=== PATIENT | female | born 1970 | race Caucasian/White ===

== ENCOUNTER 2017-07-04 17:22 | Emergency (ER) | payer OTHER ==
[~2017-07-04] VITALS: Ht 152.4 cm; Wt 55.8 kg
[~2017-07-04 17:22] MED LIST: ACYC400 PO; ALBU90OI INH; AMIT10 PO; AMOX500 PO; AZIT250 PO; BENZ100A PO; CEPH500 PO; CIPR100 PO; CIPR500 PO; CLIN300 PO; CLOT10 SUSW; CODBUTASA PO; CYCL10 PO; DICY20 PO; DOCU100 PO; HYDACE5; HYDACE5 PO; HYDHOMSY PO; IBUP800 PO; MAGCIT300 PO; MULVITA; MUPI2TO TOP; NAPR220 PO; NITR100CA PO; NYST237S MT; ONDA4ODT MM; OTC COLD MEDS; OXYACE5T PO; PARO10 PO; PENVK500 PO; PHENA100 PO; PHENA200 PO; POLY17UD PO; PRED20 PO; Pyridium100 MG PO; ROBITUSSIN COU237 ML PO; RXCLIN PO; RXHYDACE PO; SULTRIDS PO; TRAM50 PO; [UNRECOGNIZED DRUG - OTHER]
[2017-07-04 18:13] LABS: BASOPHILS ABSOLUTE AUTO 0.05 K/mm3 (0.00-0.23); BASOPHILS PERCENT AUTO 1 % (0-2); EOSINOPHILS ABSOLUTE AUTO 0.24 K/mm3 (0.00-0.68); EOSINOPHILS PERCENT AUTO 2 % (0-6); Hemoglobin 13.6 g/dL (11.5-16.0); IMMATURE GRAN ABSOLUTE AUTO 0.06 K/mm3 (0.00-0.10); IMMATURE GRAN PERCENT AUTO 1 % (0-1); LYMPHOCYTES ABSOLUTE AUTO 1.61 K/mm3 (0.84-5.20); LYMPHOCYTES PERCENT AUTO 16 % (21-46); MONOCYTES ABSOLUTE AUTO 0.52 K/mm3 (0.16-1.47); MONOCYTES PERCENT AUTO 5 % (4-13); Mean Corpuscular HGB 30.1 pg (26.0-34.0); Mean Corpuscular HGB Conc 33.2 g/dL (31.5-36.5); Mean Corpuscular Volume 91 fL (80-100); Mean Platelet Volume 9.6 fL (9.1-12.4); NEUTROPHILS ABSOLUTE AUTO 7.86 K/mm3 (1.96-9.15); NEUTROPHILS PERCENT AUTO 76 % (41-73); Platelet Count 357 K/mm3 (150-400); RDW Coefficient Variation 12.2 % (11.7-14.2); RDW Standard Deviation 40.6 fL (35.1-46.3); Red Blood Cell Count 4.52 M/mm3 (3.80-5.20); White Blood Cell Count 10.34 K/mm3 (4.00-11.30)
[2017-07-04 18:39] LABS: Alanine Aminotransfer (ALT/SGP 23 U/L (12-78); Albumin, Blood 4.3 g/dL (3.4-5.0); Albumin/Globulin Ratio 1.4 (0.8-1.8); Alk Phos 67 U/L (50-136); Anion Gap 8 mmol/L (6-16); Aspartate Aminotrans (AST/SGOT 14 U/L (12-37); Bilirubin, Total 0.5 mg/dL (0.1-1.0); Blood Urea Nitrogen 17 mg/dL (8-24); CO2, Blood 25 mmol/L (21-32); Calcium, Blood 9.2 mg/dL (8.5-10.1); Chloride, Blood 109 mmol/L (98-108); Creatinine, Blood 0.81 mg/dL (0.40-1.00); Glomerular Filtration Rate >60 (60-); Glucose, Blood 104 mg/dL (70-99); Potassium, Blood 3.9 mmol/L (3.5-5.5); Sodium, Blood 142 mmol/L (136-145); Total Protein, Blood 7.3 g/dL (6.4-8.2)
[2017-07-04 20:04] LABS: Source, Urine Clean Catch
[2017-07-04 20:06] LABS: Appearance, Urine Turbid (Clear); Bilirubin, Urine Neg (Neg); Blood, Urine 5+ (Neg); Color, Urine Amber (P-Yellow); Glucose Qualitative, Urine Neg (Neg); Ketones, Urine 2+ (Neg); Leukocyte Esterase, Urine 1+ (Neg); Nitrite, Urine Neg (Neg); Protein, Urine 2+ (Neg); Specific Gravity, Urine 1.015 (1.003-1.022); Urobilinogen, Urine NORM (Normal)
[2017-07-04 20:32] LABS: Red Blood Cells, Urine TNTC /hpf (0-2)
[2017-07-04 20:33] LABS: Amorphous Mod (0-Heavy); Bacteria Rare /hpf; Squamous Epithelial Cells Few /hpf (Few)
[2017-07-04] MEDS ORDERED: Zofran Odt4 MG PO (20:38)
[2017-07-04] MEDS ORDERED: HYDR1TAB94 PO (20:38)
[2017-07-04] MEDS ORDERED: Flomax0.4 MG PO (20:38)
== END 2017-07-04 21:46 | disposition home or self-care (01) ==
LOC: ER 17:22
PROVIDERS: Emergency Medicine
DX: N13.2 Hydronephrosis with renal and ureteral calculous obstruction (principal); Z88.2 Allergy status to sulfonamides; Z79.899 Other long term (current) drug therapy; Z79.891 Long term (current) use of opiate analgesic; F17.200 Nicotine dependence, unspecified, uncomplicated
CPT/HCPCS: 36415; 76770; 80053; 81001; 83690; 85025; 96361; 96374; 96375; 99284; J1885; J2270; J2405; J7030

== ENCOUNTER 2017-07-21 22:47 | Emergency (ER) | payer OTHER ==
[~2017-07-21] VITALS: Ht 154.9 cm; Wt 54.4 kg
[~2017-07-21 22:47] MED LIST changes: +Flomax0.4 MG PO; +HYDR1TAB94 PO; +Zofran Odt4 MG PO
[2017-07-21] MEDS ORDERED: AMIT50 PO (23:32)
[2017-07-22 01:55] LABS: Calcium, Ionized (POC) 1.16 mmol/L (1.10-1.46); Chloride (POC) 103 mmol/L (98-108); Glucose (ISTAT POC) 114 mg/dL (70-99); Hemoglobin (POC) 14.6 g/dL (12.0-16.0); Sodium (POC) 141 mmol/L (135-148); Total CO2 (POC) 24 mmol/L (21-32)
[2017-07-22 03:48] LABS: BASOPHILS ABSOLUTE AUTO 0.04 K/mm3 (0.00-0.23); BASOPHILS PERCENT AUTO 0 % (0-2); EOSINOPHILS ABSOLUTE AUTO 0.07 K/mm3 (0.00-0.68); EOSINOPHILS PERCENT AUTO 1 % (0-6); Hematocrit 39.6 % (33.0-51.0); Hemoglobin 13.4 g/dL (11.5-16.0); IMMATURE GRAN ABSOLUTE AUTO 0.05 K/mm3 (0.00-0.10); IMMATURE GRAN PERCENT AUTO 0 % (0-1); LYMPHOCYTES ABSOLUTE AUTO 2.18 K/mm3 (0.84-5.20); LYMPHOCYTES PERCENT AUTO 16 % (21-46); MONOCYTES ABSOLUTE AUTO 0.91 K/mm3 (0.16-1.47); MONOCYTES PERCENT AUTO 7 % (4-13); Mean Corpuscular HGB Conc 33.8 g/dL (31.5-36.5); Mean Corpuscular Volume 89 fL (80-100); Mean Platelet Volume 9.3 fL (9.1-12.4); NEUTROPHILS ABSOLUTE AUTO 10.35 K/mm3 (1.96-9.15); NEUTROPHILS PERCENT AUTO 76 % (41-73); Platelet Count 354 K/mm3 (150-400); RDW Coefficient Variation 12.1 % (11.7-14.2); RDW Standard Deviation 39.8 fL (35.1-46.3); Red Blood Cell Count 4.46 M/mm3 (3.80-5.20)
[2017-07-22 04:03] LABS: Anion Gap 7 mmol/L (6-16); Blood Urea Nitrogen 17 mg/dL (8-24); Bun/Creatinine Ratio 20.6 (12.0-20.0); CO2, Blood 24 mmol/L (21-32); Calcium, Blood 8.7 mg/dL (8.5-10.1); Chloride, Blood 108 mmol/L (98-108); Creatinine, Blood 0.83 mg/dL (0.40-1.00); Glomerular Filtration Rate >60 (60-); Glucose, Blood 101 mg/dL (70-99); Potassium, Blood 4.1 mmol/L (3.5-5.5); Sodium, Blood 139 mmol/L (136-145)
[2017-07-22 04:56] LABS: Source, Urine Clean Catch
[2017-07-22 04:57] LABS: Blood, Urine 5+ (Neg); Glucose Qualitative, Urine Neg (Neg); Ketones, Urine Neg (Neg); Leukocyte Esterase, Urine 2+ (Neg); Nitrite, Urine Neg (Neg); Protein, Urine 2+ (Neg); Specific Gravity, Urine 1.025 (1.003-1.022); Urobilinogen, Urine 1+ (Normal)
[2017-07-22 05:04] LABS: Appearance, Urine Turbid (Clear); Bilirubin, Urine 1+ (Neg); Color, Urine Yellow (P-Yellow)
[2017-07-22 05:41] LABS: Red Blood Cells, Urine TNTC /hpf (0-2); Squamous Epithelial Cells Many /hpf (Few)
[2017-07-22 05:42] LABS: Amorphous Heavy (0-Heavy); Bacteria Mod /hpf; Calcium Oxalate Crystals Many /hpf; Yeast/Fungi Urine Rare /hpf
[2017-07-22] MEDS ORDERED: Cipro500 MG PO (05:51)
[2017-07-22] MEDS ORDERED: Percocet 5-3251 EACH PO (05:51)
[2017-07-22] MEDS ORDERED: Flomax0.4 MG PO (05:51)
== END 2017-07-22 06:11 | disposition home or self-care (01) ==
LOC: ER 22:47
PROVIDERS: Emergency Medicine
DX: N13.2 Hydronephrosis with renal and ureteral calculous obstruction (principal); F17.200 Nicotine dependence, unspecified, uncomplicated; Z88.2 Allergy status to sulfonamides; Z87.442 Personal history of urinary calculi; Z79.899 Other long term (current) drug therapy; Z90.710 Acquired absence of both cervix and uterus
CPT/HCPCS: 36415; 74176; 80047; 80048; 81001; 85014; 85025; 87086; 96372; 96374; 99284; J1170; J1885

== ENCOUNTER 2020-02-02 10:45 | Emergency (ER) | payer OTHER ==
[~2020-02-02] VITALS: Ht 152.4 cm; Wt 77.1 kg
[~2020-02-02 10:45] MED LIST changes: +AMIT50 PO; +Cipro500 MG PO; +Percocet 5-3251 EACH PO
[2020-02-02] MEDS ORDERED: NAPR500 PO (11:00)
[2020-02-02] MEDS ORDERED: OMEPRAZOLE MAGN20 MG PO (11:00)
[2020-02-02] MEDS ORDERED: PRED20 PO (13:09)
[2020-02-02] MEDS ORDERED: CYCL10 PO (13:09)
== END 2020-02-02 13:29 | disposition home or self-care (01) ==
LOC: ER 10:45
DX: M54.16 Radiculopathy, lumbar region (principal); M43.16 Spondylolisthesis, lumbar region; Z88.2 Allergy status to sulfonamides; F17.210 Nicotine dependence, cigarettes, uncomplicated
CPT/HCPCS: J1100

== ENCOUNTER 2020-02-27 06:21 | Emergency (ER) | payer OTHER ==
[~2020-02-27] VITALS: Ht 152.4 cm; Wt 68.0 kg
[~2020-02-27 06:21] MED LIST changes: +NAPR500 PO; +OMEPRAZOLE MAGN20 MG PO
[2020-02-27] MEDS ORDERED: Percocet 5-3251 EACH PO (07:29)
[2020-02-27] MEDS ORDERED: CYCL10 PO (07:29)
[2020-02-27] MEDS ORDERED: BISA5EC PO (07:36)
[2020-02-27] MEDS ORDERED: MAGCIT300 PO (07:36)
[2020-02-27] MEDS ORDERED: METPRE4DP PO (07:39)
== END 2020-02-27 07:36 | disposition home or self-care (01) ==
LOC: ER 06:21
DX: M54.17 Radiculopathy, lumbosacral region (principal); F17.210 Nicotine dependence, cigarettes, uncomplicated; Z88.2 Allergy status to sulfonamides; Z79.899 Other long term (current) drug therapy
CPT/HCPCS: 99283

== ENCOUNTER 2021-06-03 23:42 | Emergency (ER) | payer OTHER ==
[~2021-06-03] VITALS: Ht 152.4 cm; Wt 64.9 kg
[~2021-06-03 23:42] MED LIST changes: +BISA5EC PO; +METPRE4DP PO
[2021-06-04] MEDS ORDERED: BENZ100A PO (03:14)
== END 2021-06-04 03:28 | disposition home or self-care (01) ==
LOC: ER 23:42
DX: R05.9 Cough, unspecified (principal); F17.210 Nicotine dependence, cigarettes, uncomplicated; Z88.2 Allergy status to sulfonamides; Z79.899 Other long term (current) drug therapy
CPT/HCPCS: 99283; A9270